=== PATIENT | female | born 1950 | race American Indian/Alaskan Native ===

== ENCOUNTER 2017-04-03 05:45 | Day surgery (SDC) | payer MEDICARE, OTHER ==
[2017-04-03] MEDS ORDERED: WATER FOR IRRIG STERILE IR ONE (07:06)
[2017-04-03] MEDS ORDERED: PEPCID IV ONE (07:33)
--- NOTE | 2017-04-03 07:36 | Anesthesia Consultation ---
Anesthesia Consult and Med Hx Date of service: 04/03/17 - Airway Anesthetic Teeth Evaluation: Good ROM Head & Neck: Adequate Mental/Hyoid Distance: Adequate Mallampati Class: Class II Intubation Access Assessment: Probably Good - Pulmonary Exam CTA: Yes - Cardiac Exam Cardiac Exam: RRR - Pre-Operative Health Status ASA Pre-Surgery Classification: ASA3 Proposed Anesthetic Plan: MAC - Cardiovascular System Hx Hypertension: Yes - Gastrointestinal Hx Gastroesophageal Reflux Disease: Yes - Other Systems Hx Cancer: Yes Hx Obesity: Yes (morbid)
--- NOTE | 2017-04-03 07:36 | Anesthesia Day of Surgery ---
Anesthesia Day of Surgery - Day of Surgery Patient Examined: Yes Patient H&P Reviewed: Yes Patient is NPO: Yes
[2017-04-03] MEDS ORDERED: DIPRIVAN 10 MG/ML IV ONE (07:40)
[2017-04-03] MEDS ORDERED: XYLOCAINE 2% INFILTRATI ONE (07:42)
--- NOTE | 2017-04-03 07:42 | Operative Report ---
Operative Report Operative Report: OPERATIVE REPORT - EGD DATE04/03/17 SURGERY: Upper endoscopy. SURGEON: Dr. Alejandro DEPUTY [employer]ERIFF [employer] SERVICES: Ludwig Barkley DO PRE OP DX: dyspepsia POST OP DX: moderate hiatal hernia TYPE OF ANESTHESIA: MAC. ESTIMATED BLOOD LOSS: None. COMPLICATIONS: None. SPECIMENS REMOVED: None. FINDINGS: 1. Moderate hiatal hernia. 2. Otherwise, normal esophagus, stomach and first portion of duodenum. INDICATIONS:INDICATION FOR PROCEDURE: Patient is a 66-year-old female with a long history of morbid obesity. She is planned to have a weight loss procedure and is here for preoperative planning EGD to ensure the anatomy of the stomach is free of lesions. PROCEDURE DETAILS: After consent was reviewed, patient was taken back to the operating room where patient was placed in the left lateral decubitus position and a bite block was placed in the mouth. After a time-out was called, MAC anesthesia was initiated. I then passed the endoscope into her oropharynx, into her esophagus, visualized the entire esophagus, which was all within normal limits. I then visualized the stomach and the first portion of the duodenum and there were no abnormalities I could clearly visualize. I then retroflexed the scope in the stomach and visualized the hiatus and I could see a moderate size hiatal hernia. I then desufflated the stomach and removed the endoscope. Patient tolerated procedure well and was transferred to recovery room in good and stable condition.
--- NOTE | 2017-04-03 07:43 | Discharge Summary ---
Providers - Providers Attending physician: KALIA RUBIO Primary care physician: AARON PEREZ Hospitalization Hospital course: 66 y.o. F presented to endoscopy for an EGD. She tolerated the procedure well. She was discharged home the same day. Disposition: - TO HOME OR SELFCARE Core Measure Documentation - Palliative Care Palliative Care/ Comfort Measures: Not Applicable - Core Measures Any of the following diagnoses?: none Exam - Physical Exam Narrative exam: no change from prior - Constitutional Vitals: Temp Pulse Resp BP Pulse Ox 97.9 F 75 16 171/95 96 04/03/17 07:22 04/03/17 07:22 04/03/17 07:22 04/03/17 07:22 04/03/17 07:22 Plan Activity: other (no driving today) Follow up with: AARON PEREZ MD [Primary Care Provider] - 7 Days
[2017-04-03] MEDS ORDERED: PEPCID IV NR (08:00)
[2017-04-03] MEDS ORDERED: NACL 0.9% 1000 ML 1,000 ML IV SCH (08:00)
[2017-04-03 08:29] VITALS: BP 118/83
--- NOTE | 2017-04-03 08:29 | Post Anesthesia Evaluation ---
- Post Anesthesia Evaluation Patient Participated: Yes Airway Patent: Yes Stable Respiratory Function: Yes Temp > 96.8F: Yes Pain Manageable: Yes Adequeate Hydration: Yes Anesthesia Complications: No
== END 2017-04-03 05:46 | disposition home or self-care (01) ==
LOC: GIO 05:45
PROVIDERS: ATTEND Specialist
DX: R10.13 Epigastric pain (principal); K44.9 Diaphragmatic hernia without obstruction or gangrene; K21.9 Gastro-esophageal reflux disease without esophagitis; I10 Essential (primary) hypertension; G47.33 Obstructive sleep apnea (adult) (pediatric); E66.01 Morbid (severe) obesity due to excess calories; Z68.41 Body mass index [BMI] 40.0-44.9, adult; Z79.899 Other long term (current) drug therapy; Z98.890 Other specified postprocedural states; Z90.710 Acquired absence of both cervix and uterus; Z85.038 Personal history of other malignant neoplasm of large intestine
CPT/HCPCS: 43235; 82962; J2704; J7030